=== PATIENT | male | born 1955 | race Caucasian/White ===

== ENCOUNTER 2022-10-06 16:38 | Outpatient (CLI) | payer MEDICARE, SELFPAY ==
--- NOTE | 2022-10-06 | XRR_ITS ---
PROCEDURE INFORMATION: Exam: XR Lumbosacral Spine Exam date and time: 10/06/2022 2:59 PM Age: 66 years old Clinical indication: Patient HX: PT was having low back pain prior to falling, PT is on day 7 of covid, constant pain TECHNIQUE: Imaging protocol: Radiologic exam of the lumbosacral spine. Views: 2 or 3 views. COMPARISON: No relevant prior studies available. FINDINGS: Bones/joints: Slight degenerative spondylolisthesis L5-S1 otherwise lumbar curvature alignment is unremarkable. Moderate degenerative changes mid-lower lumbar spine with varying degrees of disc space narrowing, endplate sclerosis and osteophytic lipping most pronounced at L4-L5. Accompanying facet arthrosis most pronounced at L5-S1. No evidence of compression fracture. Pedicles are intact. Additional degenerative endplate changes involving the lower thoracic spine with prominent anterior endplate osteophytes partially visualized. Soft tissues: Unremarkable. XR/XR lumbar spine 2-3V* [id number] IMPRESSION: Moderate degenerative changes mid-lower lumbar spine. No acute bony abnormalities.
== END 2022-10-06 16:39 | disposition home or self-care (01) ==
LOC: RAD 16:40 → RADOUTREAD 16:48
PROVIDERS: Family Provider Family Medicine; Visit Provider Nurse Practitioner Family
DX: M47.896 Other spondylosis, lumbar region (principal); M54.50 Low back pain, unspecified
CPT/HCPCS: 87426

== ENCOUNTER 2022-10-09 10:09 | Emergency (ER) | payer MEDICARE, SELFPAY ==
[2022-10-09 10:24] VITALS: BP 135/83; PULSE 103; RESP 17; TEMP 36.9; O2SAT 93; BMI 27.8
--- NOTE | 2022-10-09 12:58 | XRR_ITS ---
PROCEDURE INFORMATION: Exam: XR Chest Exam date and time: 10/09/2022 2:28 PM Age: 66 years old Clinical indication: Shortness of breath; Additional info: Covid+, concern for pneumonia TECHNIQUE: Imaging protocol: Radiologic exam of the chest. Views: 1 view. COMPARISON: CR XR chest 2V* [id number] 08/03/2016 2:30 PM FINDINGS: Lungs: Unremarkable. No consolidation. Pleural spaces: Unremarkable. No pleural effusion. No pneumothorax. Heart/Mediastinum: No cardiomegaly. Multiple mediastinal surgical clips. Bones/joints: Multiple median sternotomy wires. XR/XR chest 1V portable [id number] IMPRESSION: No acute findings.
--- NOTE | 2022-10-09 13:03 | ED_ITS ---
HPI - General Adult General: Chief complaint: COVID symptoms Stated complaint: covid+ Time Seen by Provider: 10/09/22 12:32 History of Present Illness: 66yo Male presents with significant other for evaluation of nausea with abdominal bloating and persistent cough. Patient reports that he has been sick for about 2 weeks now. States that he has gone to 2 clinics in this timeframe and now here. He states he tested positive for COVID-19 3 days ago and was prescribed azithromycin and prednisone. States that he is still having a deep cough and is having nausea and abdominal bloating. States that he has not been able to eat much in the past 2 weeks. Reports that he has a history of abdominal ulcers and takes omeprazole. Patient is concerned that he may have H. pylori. Patient's significant other reports that he seems to be doing somewhat better today, but is still having the abdominal discomfort. Patient denies difficulty breathing, shortness of breath, chest pain, vomiting, decreased urine output Associated symptoms: Reports malaise and nausea; Deny chest pain, dyspnea, rash or vomiting Review of Systems General: Reports: 10 or more systems reviewed and unremarkable except in HPI and below Const: Reports: chills, body aches and malaise Card: Denies: chest pain Resp: Denies: dyspnea GI: Reports: nausea and bloating; Denies: abdominal pain or vomiting : Denies: flank pain or difficulty urinating Musc: Denies: neck pain Skin/Breast: Denies: rash Teo/Lymph: Denies: easy bruising PFSH ED PFSH: Medical History History of nonmelanoma skin cancer Surgical History Hx of heart bypass surgery Family History Sister Diabetes Other CAD (coronary artery disease) Hypertension Denies family history of Hyperlipidemia Chronic kidney disease (CKD) Cancer Social History Smoking and tobacco status: never smoked Alcohol intake: never Substance/Drug Use: never Adopted: No Lives independently: Yes Household members: spouse Housing: House Marital status: Number of children: 0 Highest education level completed: Master's Degree 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 He is able to give history with no difficulty. Family is at bedside HENMT: COMMON NORMALS: normocephalic and atraumatic HEAD & SCALP: normocephalic and atraumatic FACE & SINUS: normal facial exam Eye: GENERAL EYE: appearance normal, both eyes and all related structures Neck/C-Spine: COMMON NORMALS: full ROM Chest: CHEST: Yes Symmetrical chest wall rise Resp: COMMON NORMALS: normal respiratory effort EFFORT & INSPECTION: Yes able to speak in complete sentences Cardio: COMMON NORMALS: regular rate and regular rhythm RATE: regular rate RHYTHM: regular rhythm GI: COMMON NORMALS: Soft to palpation and non-tender PALPATION: Yes Soft to palpation Extremity: COMMON NORMALS: full ROM Neuro: COMMON NORMALS: patient oriented x3 SENSORIUM/ORIENTATION: Yes alert Psych: COMMON NORMALS: cooperative ATTITUDE: Yes calm Course Vital Signs: Vital signs: Vital Signs Temperature 98.4 F 10/09/22 10:24 Pulse Rate 92 10/09/22 15:18 Respiratory Rate 18 10/09/22 15:18 Blood Pressure 121/77 10/09/22 15:18 Pulse Oximetry 94 10/09/22 15:18 Oxygen Delivery Me thod Room Air 10/09/22 13:51 MDM - General Adult Medical Decision Making 66yo male here with Significant other for continued cough with COVID-19 as well as nausea and abdominal bloating. Patient reports that he does have a history of abdominal ulcers and has been taking omeprazole. States that he has not been able to eat much in the past 2 weeks since his symptoms started. Reports that he tested positive for COVID-19 3 days ago and was prescribed azithromycin and prednisone. Patient and significant other are concerned about a possible H. pylori infection. Patient denies difficulty breathing, shortness of breath, chest pain, difficulty voiding, use of blood thinners. Patient is nontoxic in appearance. Vital signs are stable. Patient did report improvement in his nausea after administration of ondansetron. Chest x-ray with no indication of pneumonia, no acute abnormalities noted. Discussed findings with patient and family. Discussed that we do not have a rapid test for H. pylori in the emergency department. Georgina briones reported that they could follow-up with her primary care for that. Prescription for ondansetron was sent to patient's pharmacy to help with the nausea. Advised patient that both azithromycin and prednisone are potentially upsetting to the stomach. Encouraged to use cool-mist humidifier to help with cough. Recommend follow-up with primary care, call next week with an update of symptoms and to discuss a recheck. Advised to return to the emergency department if any rapid worsening symptoms, difficulty breathing, shortness of breath, chest pain, and as needed. Lab Data I reviewed the patient's lab results. Radiology Impressions Chest X-Ray 10/09/22 12:58 IMPRESSION: No acute findings. Discharge Plan Discharge Patient Disposition: Home Clinical Impression: Nausea in adult patient, COVID-19 Condition: Stable Prescriptions: New ondansetron 4 mg tablet,disintegrating 4 mg PO Q8H PRN (Reason: nausea and vomiting) Qty: 20 0RF No Action azithromycin 250 mg tablet See Rx Instructions PO .COMPLEX Qty: 6 0RF Rx Instructions: For 250 mg dose pack: take 500 mg today (day 1), then 250 mg for 4 days (days 2-5) PO prednisone 10 mg tablets,dose pack See Rx Instructions PO PER PKG DIR Qty: 21 0RF Rx Instructions: PO PER PKG DIR omeprazole magnesium [Prilosec OTC] 20 mg tablet,delayed release (DR/EC) 20 mg PO DAILY nitroglycerin 0.4 mg tablet, sublingual 0.4 mg sublingual Q5M PRN (Reason: chest pain) Qty: 20 0RF Rx Instructions: do not exceed 3 doses per episode metoprolol succinate 25 mg tablet extended release 24 hr 25 mg PO DAILY Qty: 90 3RF lisinopril 5 mg tablet 5 mg PO DAILY Qty: 90 3RF tramadol 50 mg tablet 50 mg PO Q7H PRN (Reason: Pain) Discharge Orders: Discharge ED (Routine); Ordered 10/09/22 Ordered By: Erickson Cleary Referrals: Dawit Norman DO [Primary Care Provider] - Discharge Diet: Usual diet Discharge Activity: Increase activity as tolerated Patient Instructions: Acute Nausea and Vomiting (ED), COVID-19 (Coronavirus Disease 2019) (ED) Coding Level of Care Code 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
[2022-10-09] MEDS: ondansetron 4 MG Tablet PO (13:48)
[2022-10-09 13:51] VITALS: O2SAT 95
[2022-10-09 15:18] VITALS: BP 121/77; PULSE 92; RESP 18; O2SAT 94
[2022-10-09 15:47] VITALS: BP 145/92; PULSE 91; O2SAT 91
== END 2022-10-09 15:48 | disposition home or self-care (01) ==
PROVIDERS: Emergency Provider Nurse Practitioner; PCP Family Medicine
DX: U07.1 COVID-19 (principal); R11.0 Nausea
CPT/HCPCS: 71045; 99283; Q0162

== ENCOUNTER → 2022-10-22 11:30 | Outpatient (BNVA) | payer MEDICARE, SELFPAY | PROVIDERS: PCP Family Medicine; Visit Provider Family Medicine | DX: E11.9 Type 2 diabetes mellitus without complications (principal); I10 Essential (primary) hypertension; R31.9 Hematuria, unspecified; U07.1 COVID-19; R14.0 Abdominal distension (gaseous) | CPT/HCPCS: 80053; 85025; 86677 ==

== ENCOUNTER → 2022-12-06 12:02 | Outpatient (BNVA) | payer MEDICARE, SELFPAY | PROVIDERS: PCP Family Medicine; Visit Provider Family Medicine | DX: E11.9 Type 2 diabetes mellitus without complications (principal); I10 Essential (primary) hypertension; N40.0 Benign prostatic hyperplasia without lower urinary tract symptoms | CPT/HCPCS: 80053; 83036 ==

== ENCOUNTER → 2024-01-09 13:39 | Outpatient (BNVA) | payer MEDICARE, SELFPAY | PROVIDERS: PCP Family Medicine; Visit Provider Family Medicine | DX: I10 Essential (primary) hypertension (principal); E11.9 Type 2 diabetes mellitus without complications | CPT/HCPCS: 80053; 80061; 83036 ==

== ENCOUNTER → 2024-05-07 12:10 | Outpatient (BNVA) | payer MEDICARE, SELFPAY | PROVIDERS: PCP Family Medicine; Visit Provider Family Medicine | DX: E11.9 Type 2 diabetes mellitus without complications (principal); I10 Essential (primary) hypertension | CPT/HCPCS: 80053; 80061; 83036; 85025 ==